=== PATIENT | male | born 1980 | race Hispanic/Latino ===

== ENCOUNTER 2018-07-09 20:16 | Emergency (ER) | payer SELFPAY ==
[~2018-07-09] VITALS: Ht 167.6 cm; Wt 112.0 kg
[2018-07-09] MEDS ORDERED: MORPHINE SULFATE INJ 4 MG/ML INJ IV STA (21:14)
[2018-07-09] MEDS ORDERED: ONDANSETRON HCL INJ 2 MG/ML VIAL IV STA (21:14)
[2018-07-09] MEDS ORDERED: SODIUM CHLORIDE 0.9% 1000ML 1,000 ML IV STA (21:14)
--- NOTE | 2018-07-09 21:24 | NUR ---
MORPHINE ORDERED, CAN NOT ADMINISTER IN LOBBY, [employer] AND PT AWARE
[2018-07-09 22:20] LABS: BASOPHILS % 0.3 % (0.0-1.0); EOSINOPHILS # (AUTO) 0.1 (0.0-0.4); EOSINOPHILS % 0.8 % (0.0-6.0); HEMATOCRIT 52.9 % (38.2-49.6); HEMOGLOBIN 18.7 g/dL (14.0-18.0); MEAN CORPUSCULAR HEMOGLOBIN 29.6 pg (28-32); MEAN CORPUSCULAR HGB CONC 35.3 g/dL (31-35); MEAN CORPUSCULAR VOLUME 83.8 fL (81-99); MONOCYTES # (AUTO) 0.6 (0.2-0.8); NEUTROPHILS # (AUTO) 12.6 (2.1-6.9); NEUTROPHILS % 81.4 % (38.7-80.0); PLATELET COUNT 226 x10e3/uL (140-360); RED BLOOD COUNT 6.31 x10e6/uL (4.3-5.7); RED CELL DISTRIBUTION WIDTH 12.5 % (11.7-14.4)
[2018-07-09 22:33] LABS: ALANINE AMINOTRANSFERASE 56 IU/L (0-55); ALBUMIN 4.2 g/dL (3.5-5.0); ALBUMIN/GLOBULIN RATIO 1.2 (0.8-2.0); ALKALINE PHOSPHATASE 96 IU/L (40-150); AMYLASE 49 U/L (25-125); ANION GAP 16.4 mmol/L (8-16); BLOOD UREA NITROGEN 15 mg/dL (7-26); BUN/CREATININE RATIO 16 (6-25); CALCIUM 9.9 mg/dL (8.4-10.2); CARBON DIOXIDE 19 mmol/L (22-29); CHLORIDE 105 mmol/L (98-107); CREATININE, SERUM 0.96 mg/dL (0.72-1.25); EST GLOMERULAR FILTRATION RATE > 60 ML/MIN (60-); GLUCOSE 222 mg/dL (74-118); LIPASE 18 U/L (8-78); POTASSIUM 3.4 mmol/L (3.5-5.1); SODIUM 137 mmol/L (136-145)
[2018-07-09] MEDS ORDERED: SODIUM CHLORIDE 0.9% 50ML 50 ML ONE (23:46)
[2018-07-09] MEDS ORDERED: IOPAMIDOL 370 MG/ML 200 ML INFUS..BTL INJ ONE (23:46)
[2018-07-09 23:49] LABS: CLARITY,URINE CLOUDY (CLEAR); COLOR,URINE YELLOW (YELLOW); LEUKOCYTE ESTERASE ,URINE NEGATIVE (NEGATIVE)
[2018-07-09 23:50] LABS: BILIRUBIN,URINE NEGATIVE (NEGATIVE); KETONES,URINE NEGATIVE (NEGATIVE); NITRITE,URINE NEGATIVE (NEGATIVE); PROTEIN,URINE DIPSTICK 3+ (NEGATIVE); URINE UROBILINOGEN 0.2 mg/dL (0.2 - 1)
[2018-07-09 23:52] LABS: BACTERIA,URINE FEW /HPF; CALCIUM OXALATE CRYSTALS,UR MANY (FEW); EPITHELIAL CELLS,URINE FEW /LPF; MUCUS,URINE MODERATE (RARE); RBC,URINE 0-5 /HPF (0-5)
--- NOTE | 2018-07-10 00:38 | Diagnostic Imaging Report ---
. EXAM: CT ABDOMEN/PELVIS W DATE: 07/09/2018 9:14 PM INDICATION: Periumbilical abdominal pain COMPARISON: None TECHNIQUE: The abdomen and pelvis were scanned using a multidetector helical scanner. Coronal and sagittal reformations were obtained. CT low dose techniques were utilized, as applicable. IV Contrast: 100 ml Isovue 300/370 FINDINGS: LOWER THORAX: No consolidations LIVER/BILIARY: Hepatic steatosis and hepatomegaly. No ductal dilatation. GALLBLADDER: Surgically absent SPLEEN: Spleen measures upper limits of normal PANCREAS: Unremarkable ADRENALS: No nodules KIDNEYS: No suspicious renal masses. No hydronephrosis. GI TRACT: Mild diffuse small bowel wall thickening and hyperemia. Associated mesenteric edema and mild free fluid. Fluid tracks along the appendix which is otherwise normal. VESSELS: Unremarkable PERITONEUM/RETROPERITONEUM: Mild free fluid. No free air. LYMPH NODES: No lymphadenopathy REPRODUCTIVE ORGANS/BLADDER: Bladder is decompressed. SOFT TISSUES: No acute findings BONES: No suspicious bone lesions. IMPRESSION: 1. Findings of enteritis. 2. Hepatic steatosis and hepatomegaly. Signed by: Dr Becca Givens MD on 07/10/2018 12:34 AM
[2018-07-10] MEDS ORDERED: BELLADONNA ALK/PHENOBARBITAL 5 ML UDC PO STA (04:29)
[2018-07-10] MEDS ORDERED: MAGNESIUM/ALUMINUM/SIMETHICONE 30 ML UDC PO ONE (04:30)
[2018-07-10] MEDS ORDERED: LIDOCAINE VISC 2% SOLN 15 ML UDC PO ONE (04:30)
[2018-07-10] MEDS ORDERED: BELLADONNA ALK/PHENOBARBITAL 5 ML UDC ONE (04:35)
[2018-07-10] MEDS ORDERED: LIDOCAINE VISC 2% SOLN 15 ML UDC ONE (04:35)
[2018-07-10] MEDS ORDERED: MAGNESIUM/ALUMINUM/SIMETHICONE 30 ML UDC ONE (04:35)
[2018-07-10 05:03] VITALS: BP 132/79
== END 2018-07-10 05:10 | disposition home or self-care (01) ==
LOC: ER 20:16
DX: R10.33 Periumbilical pain (principal); R19.7 Diarrhea, unspecified
CPT/HCPCS: 36415; 74177; 80053; 81001; 82150; 83690; 85025; 99284; Q9967